=== PATIENT | male | born 1990 | race Hispanic/Latino ===

== ENCOUNTER → 2023-10-26 14:16 | Outpatient (REF) | payer OTHER, SELFPAY ==
[2023-10-26 15:32] LABS: % Basophils 0.6 % (0-2); % Eosinophils 3.6 % (0-6); % Immature Granulocytes 0.4 % (0-0.5); % Lymphocytes 37.1 % (20.5-51.1); % Monocytes 7.5 % (1.7-9.3); % Neutrophils 50.8 % (42.2-75.2); Absolute Basophils 0.1 10^3/uL (0-0.2); Absolute Eosinophils 0.3 10^3/uL (0-0.7); Absolute Monocytes 0.6 10^3/uL (0.1-0.6); Absolute Neutrophils 4.1 10^3/uL (1.4-6.5); Hematocrit 42.7 % (39.0-52.0); Hemoglobin 15.4 g/dL (13.0-18.0); Mean Corp Hgb Conc. 36.1 g/dL (33.0-37.0); Mean Corpuscular Hgb 29.4 pg (27.0-31.0); Mean Corpuscular Volume 81.6 fL (80.0-94.0); Mean Platelet Volume 10.5 fL (7.4-10.4); Nucleated Red Blood Cells % 0 % (-); Platelet Count 256 10^3/uL (130-400); Red Blood Cell Count 5.23 10^6/uL (4.70-6.10); Red Cell Dist. Width 12.7 % (11.5-14.5); White Blood Cell Count 8.1 10^3/uL (4.8-10.8)
[2023-10-26 15:44] LABS: ALT (SGPT) 85 U/L (0-50); AST (SGOT) 97 U/L (17-59); Albumin 4.6 g/dl (3.5-5.0); Alkaline Phosphatase 38 U/L (38-126); Blood Urea Nitrogen 16 mg/dl (9-20); Calcium 9.8 mg/dl (8.4-10.2); Carbon Dioxide 28 mmol/L (22-30); Chloride 102 mmol/L (98-107); Glucose 83 mg/dl (70-99); HDL Cholesterol 47 mg/dl; LDL Cholesterol, Calculated 103 mg/dl; Potassium 4.4 mmol/L (3.5-5.1); Sodium 139 mmol/L (135-145); Total Bilirubin 0.5 mg/dl (0.2-1.3); Total Cholesterol 170 mg/dl (50-199); Total Protein 7.2 g/dl (6.3-8.2); Triglyceride 103 mg/dl (10-149); Very Low Density Lipoprotein 20 mg/dl (0-30); eGFR > 60.00
[2023-10-26 16:08] LABS: Vitamin D, 25-OH*** 28.9 ng/mL (30-80)
[2023-10-26 16:22] LABS: TSH Reflex To Free T4 1.15 uIU/ml (0.47-4.68)
[2023-10-27 10:18] LABS: Glycohemoglobin (HgbA1c) 5.5 % (4.0-5.6)
[2023-10-28 08:54] LABS: H. pylori Breath Test Negative (Negative)
== END ==
LOC: CLINIC 14:16
PROVIDERS: ATTENDING PHYSICIAN Nurse Practitioner Acute Care
DX: Z00.00 Encounter for general adult medical examination without abnormal findings (principal)
CPT/HCPCS: 36415; 80053; 80061; 82306; 83013; 83036; 84443; 85025

== ENCOUNTER → 2023-11-24 15:58 | Outpatient (REF) | payer OTHER, SELFPAY | LOC: CLINIC 15:58 | PROVIDERS: ATTENDING PHYSICIAN Nurse Practitioner Acute Care | DX: R07.89 Other chest pain (principal) | CPT/HCPCS: 93005 ==

== ENCOUNTER → 2023-12-05 14:48 | Outpatient (REF) | payer OTHER, SELFPAY | LOC: RCS 14:48 | PROVIDERS: ATTENDING PHYSICIAN Nurse Practitioner Acute Care | DX: R07.89 Other chest pain (principal) | CPT/HCPCS: 93017 ==

== ENCOUNTER → 2024-01-05 15:42 | Outpatient (REF) | payer OTHER, SELFPAY ==
[2024-01-05 18:36] LABS: Hepatitis B Surface Antigen Negative (Negative)
[2024-01-05 18:51] LABS: Hepatitis C Antibody Negative (Negative)
== END ==
LOC: REG 15:42
PROVIDERS: ATTENDING PHYSICIAN Internal Medicine
DX: R07.89 Other chest pain (principal)
CPT/HCPCS: 36415; 86803; 87340

== ENCOUNTER 2025-02-09 13:05 | Observation (INO) | payer OTHER, SELFPAY ==
[2025-02-09] VITALS (7 sets, daily range): BP systolic 103–120; BP diastolic 55–74; BMI 29.7; BMI 29.2
--- NOTE | 2025-02-09 09:12 | ED.GENMED ---
History of Present Illness
General
Chief Complaint: Abdominal Symptoms
Time Seen by Provider: 02/09/25 09:12
History of Present Illness
History of Present Illness:
FOCUSED PAST MEDICAL HISTORY
- Denies any significant past medical history
REVIEW OF OLD RECORDS
- I reviewed records, the patient was seen in the emergency department in July 2022 related to alcohol use and at that time [facility] evaluated patient and outpatient resources were given
Note:
CHIEF COMPLAINT(S)
Ingestion of floor representative.
HISTORY OF PRESENT ILLNESS
The patient is a 35-year-old male who accidentally ingested a floor representative, identified as OdoBan, 'a neutral pH dumper mold cleaner'. The incident occurred early in the morning when the patient mistakenly drank the dumper mold cleaner, thinking it was water. He consumed
an amount equivalent to a small glass. Upon ingestion, the patient immediately detected an unusual taste and odor, leading to a prompt emetic response, where he vomited a small amount. He then developed abdominal pain and headaches were reported at
the time of the encounter. He had ongoing symptoms. His primary concern was the potential toxicity of the ingestion. Emergency interventions included the initiation of intravenous fluids and administration of antiemetic medication to manage
potential nausea.
SEARCH OF INGREDIENTS
'Surfactants like C8-16 alcohol poly glucoside and C11 alcohols ethyloxylated'
'Preservative blend of methylchloroisothiazolinone and methylisothiazolinone'
MEDICATIONS
No current medications or allergies were disclosed by the patient.
PHYSICAL EXAM
General: The patient appeared uncomfortable upon arrival, continued dry heaving/retching
Skin: Warm, dry.
Head: Normocephalic, atraumatic.
Neck: Supple, trachea midline.
Eye Ears, nose, mouth, and throat: Oral mucosa moist.
Cardiovascular: Normal peripheral perfusion, No edema.
Respiratory: Respirations are non-labored.
Gastrointestinal: Abdomen nondistended. Minimal upper abdominal tenderness
Back: Normal range of motion, Normal alignment.
Musculoskeletal: Normal range of motion, normal strength.
Neurological: Alert and oriented to person, place, time, and situation, No focal neurological deficit observed.
Psychiatric: Cooperative, appropriate mood & affect.
PLAN
- Start intravenous fluids to maintain hydration.
- Administer antiemetic medication for potential nausea.
- Conduct blood work for further evaluation.
DIFFERENTIAL DIAGNOSIS
The Differential Diagnosis includes, in no particular order and is not limited to:
1. Acute chemical ingestion.
2. Gastrointestinal irritation secondary to ingestion.
3. Acute stress reaction.
4. Dehydration.
5. Electrolyte imbalance.
6. Toxicity from household chemicals.
7. Esophageal irritation or injury.
8. Allergic reaction to chemical compounds in the dumper mold cleaner.
9. Aspiration pneumonia.
10. Simple nausea/vomiting due to non-ingestion related causes.
LABS
- CBC and chemistries unremarkable, VBG unremarkable, normal osmolarity
UPDATE
-SUMMARY OF ENCOUNTER
The patient, a 35-year-old male, presented to the emergency department after accidentally ingesting OdoBan, a neutral pH floor representative. He consumed the equivalent of a small glass, mistaking it for water. The patient experienced an immediate emetic
response following ingestion and vomited a small amount. He did not report any significant symptoms, such as abdominal pain or headaches afterward. The main concern was the potential toxicity of the dumper mold cleaner. In the emergency department, the patient
received intravenous fluids to maintain hydration and antiemetic medication to manage potential nausea. Blood work was conducted for further evaluation to monitor any adverse effects or complications from the ingestion.
PLAN
- Continue intravenous fluids to ensure proper hydration.
- Continue antiemetic medications as needed to manage nausea.
- Monitor the patient�s vital signs and symptoms to ensure no complications develop.
- Await and review results from blood work to assess any need for changes in management.
MEDICATION RECONCILIATION
Intravenous fluids and antiemetic medication were administered to the patient during the visit.
MEDICAL DECISION MAKING
-Complexity of Data Reviewed: Differential diagnosis includes acute chemical ingestion, gastrointestinal irritation, acute stress reaction, dehydration, electrolyte imbalance, toxicity from household chemicals, esophageal irritation or injury,
allergic reaction to chemical compounds in the dumper mold cleaner, aspiration pneumonia, and simple nausea/vomiting due to non-ingestion related causes.
-Data:
Category 1
Blood work was ordered and reviewed to monitor potential complications from chemical ingestion.
-Risk:
Consideration of Admission/Observation: Escalation of care including admission/observation was considered given the complexity and risk of the patients presenting complaint. However, ultimately it was determined that the patient is safe for
outpatient management with close follow-up. The reasoning included a reassuring work-up, stable vitals, and effective symptom control upon reevaluation.
DIAGNOSIS
Accidental ingestion of household dumper mold cleaner, ICD-10 T55.9X1A.
Suspected gastrointestinal irritation due to chemical ingestion, ICD-10 K52.9.
I discussed the case with the on-call landmen at [facility]. No further recommendations regarding from a toxicology standpoint however he does recommend GI involvement. The patient does have ongoing retching and spitting up of his
secretions, he did only fair with p.o. challenge, Dr. Prasad evaluated patient in the ER and recommends he stay in the hospital overnight for observation in case this could be more of a caustic alkali ingestion.
Past History
Past History
ED Past Medical History: None
ED Past Surgical History: None
Social History
Tobacco: Non-smoker
Alcohol: Occasional
Personal: Single
Living: with family
Employment: Employed
Family History
Family History: Negative CAD
Phy Exam
Physical Exam
Physical Exam:
See HPI
Course
Orders/Labs/Results
Orders:
Orders
02/09/25 09:23
0.9% Sodium Chloride 1000 ml [Nss] 1,000 ml IV BOLUS
Famotidine [Pepcid] 20 mg IV NOW STA
Ondansetron Injectable [Zofran] 4 mg IV NOW STA
02/09/25 09:32
Alcohol Urgent
Complete Blood Count/With Diff Urgent
Comprehensive Metabolic Panel Urgent
Serum Osmolality Urgent
Venous Blood Gas Urgent
%Oxygen/Room Air: ra
Abnormal Lab Results
02/09/25
09:32
VBG pCO2 50 H mmHg
(35-48)
VBG HCO3 29.6 H mmol/L
(22-27)
Glucose 101 H mg/dl
(70-99)
Alkaline Phosphatase 26 L U/L
(38-126)
02/09/25 09:32
02/09/25 09:32
Vital Signs
Initial and Last Documented VS:
Initial Vital Signs
Temp Pulse Resp BP Pulse Ox
36.6 C 62 16 120/74 99
02/09/25 09:04 02/09/25 09:04 02/09/25 09:04 02/09/25 09:04 02/09/25 09:04
Last Documented Vital Signs
Temp Pulse Resp BP Pulse Ox
36.6 C 62 16 120/74 99
02/09/25 09:04 02/09/25 09:04 02/09/25 09:04 02/09/25 09:04 02/09/25 09:25
*Pulse Oximetry
SaO2: 99
Oxygen Mode of Delivery: Room air
Patient hypoxic: no
*Critical Care Note
Total Time (30-74mins, 75-104mins- exclusive of procedures): Not Applicable
ED Attending Note
-
Portions of this chart may have been created with voice recognition software.� Occasional wrong word or��sound alike� substitutions may have occurred due to the inherent limitations of voice recognition software.
Discharge Plan
Departure
Patient Disposition: Admit
Date of Disposition: 02/09/25
Time of Disposition: 11:46
Presentation/result/management discussed w/ accepting MD/DO: Hospitalist
Discharge Problem:
Accidental ingestion of substance
Prescriptions:
No Action
meloxicam 15 mg tablet
15 mg PO DAILY
Patient Comments:
Pt states that he just started taking this two days ago. Rx was filled 08/15/24.
Referrals:
UNKNOWN - PT DOES,NOT KNOW [Family Provider]
Interventions
Interventions:
*Risk Screen - Suicide Last Done: 02/09/25 09:04
*General Assessment Last Done: 02/09/25 09:47
*Neglect/Abuse Screening Last Done: 02/09/25 09:04
*ED- Fall Risk Assessment Last Done: 02/09/25 09:47
[facility] Assessment Last Done: 02/09/25 09:47
Discharge Date and Time
Print Language: GAMBIAN
[2025-02-09] MEDS: NSS 1000 IV (09:41)
[2025-02-09] MEDS: PEPCID 20 MG IV (09:41)
[2025-02-09] MEDS: ZOFRAN 4 MG IV (09:41)
[2025-02-09 09:45] LABS: Venous Blood Gas B.E. 3.2 mmol/L (-4 to +4); Venous Blood Gas O2 Sat % 76.0 %
[2025-02-09 09:46] LABS: Hematocrit 45.6 % (39.0-52.0); Hemoglobin 15.8 g/dL (13.0-18.0); Mean Corp Hgb Conc. 34.6 g/dL (33.0-37.0); Mean Corpuscular Volume 84.8 fL (80.0-94.0); Nucleated Red Blood Cells % 0 % (-); Platelet Count 247 10^3/uL (130-400); Red Cell Dist. Width 12.5 % (11.5-14.5)
[2025-02-09 09:47] LABS: Venous Blood Gas O2 Therapy ra
[2025-02-09 10:04] LABS: ALT (SGPT) 35 U/L (0-50); AST (SGOT) 24 U/L (17-59); Albumin 4.4 g/dl (3.5-5.0); Alkaline Phosphatase 26 U/L (38-126); Blood Urea Nitrogen 15 mg/dl (9-20); Calcium 9.4 mg/dl (8.4-10.2); Carbon Dioxide 27 mmol/L (22-30); Chloride 104 mmol/L (98-107); Estimated Creatinine Clearance > 125 ml/min; Glucose 101 mg/dl (70-99); Potassium 3.6 mmol/L (3.5-5.1); Sodium 137 mmol/L (135-145); Total Protein 7.5 g/dl (6.3-8.2); eGFR > 60.00
--- NOTE | 2025-02-09 11:47 | CON.GI ---
Consultation
-
Date/Time Consultation Performed: 02/09/25
Performing Provider: Herbert Prasad MD
Reason for Consultation: caustic ingestion
Medical History
Chief Complaint / HPI
Chief Complaint: caustic ingestion
History of Present Illness:
The patient is a 35-year-old male with past medical history as noted with caustic ingestion. He accidentally ingested about a glass full of a smoothie that he accidentally made with a cleaning agent which was stored in a water bottle. He had
immediate emesis. Upon presentation he had some GI discomfort, now feeling much better with only minimal abdominal discomfort. He has no mouth pain and denies any significant dysphagia or odynophagia. He has been having some belching recently
though really no other significant GI issues leading up to this. He has no fevers or chills and denies any chest pain or shortness of breath, denies any wheezing.
Past Medical History
Past Medical History: None
Past Surgical History: None
Social History
Tobacco: Non-Smoker
Alcohol: None
Family History
Family History: Reviewed & Not Pertinent
Allergies / Home Medications
Allergy/AdvReac Type Severity Reaction Status Date / Time
No Known Allergies Allergy Verified 09/27/22 09:37
�Medication �Instructions �Recorded
No Meds [No Current Medications] 09/21/20
Review of Systems
-
All other systems: A 12 pt ROS was Negative except as stated above in HPI
Vital Signs
Temp Pulse Resp BP Pulse Ox
98 F 62 16 120/74 99
02/09/25 09:04 02/09/25 09:04 02/09/25 09:04 02/09/25 09:04 02/09/25 09:25
Physical Exam
Exam
General: NAD
HEENT: MMM, anicteric, no lymphadenopathy, no mouth ulcerations
Heart: Regular, no murmurs
Lungs: CTA bilaterally
Abdomen: normal bowel sounds, soft, no tenderness, no rebound or guarding, no masses, bruits or ascites
Extremeties: no edema
Skin: no rashes
Results
WBC 8.0 10^3/uL (4.8-10.8) 02/09/25 09:32
Hgb 15.8 g/dL (13.0-18.0) 02/09/25:
Hct 45.6 % (39.0-52.0) 02/09/25:
MCV 84.8 fL (80.0-94.0) 02/09/25:
Plt Count 247 10^3/uL (130-400) 02/09/25:
Absolute Neuts (auto) 4.3 10^3/uL (1.4-6.5) 02/09/25:
Sodium 137 mmol/L (135-145) 02/09/25:
Potassium 3.6 mmol/L (3.5-5.1) 02/09/25:
Chloride 104 mmol/L (98-107) 02/09/25:
Carbon Dioxide 27 mmol/L (22-30) 02/09/25:32
BUN 15 mg/dl (9-20) 02/09/25:32
Creatinine 0.7 mg/dL (0.7-1.3) 02/09/25:
Calcium 9.4 mg/dl (8.4-10.2) 02/09/25:
Total Bilirubin 0.9 mg/dl (0.2-1.3) 02/09/25:
AST 24 U/L (17-59) 02/09/25:
ALT 35 U/L (0-50) 02/09/25:32
Alkaline Phosphatase 26 U/L (38-126) L 02/09/25:32
Diagnostic Image Results:
Prior GI Procedures:
EGD:
Colonoscopy:
Assessment / Plan
-
1. Caustic ingestion: Of a household venetian blind cleaner and repairer containing ammonia. It is reassuring that he has no mouth basilio now and only minimal GI symptoms. In the absence of mouth basilio and minimal GI symptoms can hold on urgent endoscopy, with lower risk of
significant esophageal injury. Given that did contain ammonia, however would observe overnight, clear liquid diet and supportive care for now. If continues to do well then can discharge in the morning, if symptoms worsen would plan endoscopy to
help risk stratify esophageal injury.
-
-
Thank you for consultation and allowing me to participate in the patient's care. Please call the internal combustion engine inspector GI physician during the after hours with any questions or concerns.
--- NOTE | 2025-02-09 12:05 | HPS.HSE ---
Family Physician
-
Family Physician: NOT KNOW UNKNOWN - PT DOES
Chief Complaint
-
Shortness of breath
History of Present Illness
35-year-old male with no past medical history presents with chief complaint of shortness of breath. Earlier this morning the patient had an accidental ingestion of OdoBan commercial floor covering installer. He developed abdominal pain and shortness of breath. He
induced vomiting. He came to the ER due to concerns for shortness of breath which have now resolved. The ER attending spoke to toxicology. Nothing to do other that supportive care and monitoring for development of any new symptoms. Patient denies
any other acute symptoms. After receiving Zofran, IV fluids, Pepcid in the ER the patient feels better.
Medical History
Past Medical History
Past Medical History: Reports None
Past Surgical History: Reports Other (N/A)
Social History
Tobacco: Non-smoker
Alcohol: None
Drug: None
Family History
Family History: Not pertinent
Allergies / Home Medications
Allergies reflects when Allergies were last updated in Tweet Category.
Home Medications with original date entered in Tweet Category
Allergy/Medication List:
Allergies
Allergy/AdvReac Type Severity Reaction Status Date / Time
No Known Allergies Allergy Verified 09/27/22 09:37
Home Medications
meloxicam 15 mg tablet 15 mg PO DAILY 02/09/25
Review of Systems
-
History Source: Patient
A 12 point ROS was completed and negative except as noted: Yes
Physical Exam
Vital Signs
Vital Signs
Temp Pulse Resp BP Pulse Ox
98 F 62 16 120/74 99
02/09/25 09:04 02/09/25 09:04 02/09/25 09:04 02/09/25 09:04 02/09/25 09:25
Physical Exam
General: Other (.)
Laboratory Results
-
02/09/25 09:32
02/09/25 09:32
Laboratory Results
Total Bilirubin 0.9 mg/dl (0.2-1.3) 02/09/25 09:32
AST 24 U/L (17-59) 02/09/25 09:32
ALT 35 U/L (0-50) 02/09/25 09:32
Alkaline Phosphatase 26 U/L (38-126) L 02/09/25 09:32
Impression/Plan
-
Gen: NAD, AAOx3.
Eyes: EOMI, PERRLA, no scleral icterus.
Neck: supple.
CV: RRR, +S1/S2, no m/r/g.
Resp: CTAB, no rales, wheezes, or rhonchi.
Abd: +BS, soft, NT, ND
Skin: No rashes.
Neuro: CN 2-12 intact, non-focal.
Psych: Normal mood and affect.
Accidental ingestion of OdoBan commercial floor covering installer:
-ER attg spoke to toxicology. Nothing to do other that supportive care and monitoring for development of any new symptoms.
-Hemodynamically stable, no significant laboratory abnormalities
-IVFs, antiemetics
-check CMP/CBC in AM
FULL/Lovenox
--- NOTE | 2025-02-09 13:03 | EDCM ---
CM reviewed chart and met with pt bedside in ED. pt primarily Malawian speaking, does understand some Greek.
Lives with his in apartment, independent in ADLs, personal care and ambulation. No DME.
Confirms he is not insured. Has been to [facility] in the past.
Does not know which pharmacy he would use.
Anticipate discharge home, no needs. CM will continue to follow.
[2025-02-09] MEDS: D5/0.45%NACL 1000 IV ×2 (15:17→23:26)
--- NOTE | 2025-02-09 15:17 | PTCARENOTE ---
Pt transferred from ED. Ambulated into room. Pt Latvian speaking, knit goods mender at bedside. Pt oriented to unit, call vaughn within reach. Will continue with current plan.
[2025-02-09] MEDS: PEPCID 20 MG PO (20:54)
[2025-02-10] MEDS: D5/0.45%NACL 1000 IV (06:09)
[2025-02-10] MEDS: PEPCID 20 MG PO (07:44)
[2025-02-10 08:35] VITALS: BP 117/66
[2025-02-10 09:16] LABS: Hematocrit 45.4 % (39.0-52.0); Hemoglobin 15.7 g/dL (13.0-18.0); Mean Corp Hgb Conc. 34.6 g/dL (33.0-37.0); Mean Corpuscular Volume 84.4 fL (80.0-94.0); Platelet Count 256 10^3/uL (130-400); Red Cell Dist. Width 12.6 % (11.5-14.5)
[2025-02-10] MEDS: ZOFRAN 4 MG IV (09:52)
[2025-02-10 10:03] VITALS: BP 119/64
--- NOTE | 2025-02-10 10:03 | PTCARENOTE ---
Pt complaining of chest pain with nausea, PRN Zofran given. EKG showing Sinus Chin, VSS. MD made aware. Will continue with current plan
[2025-02-10 10:08] LABS: ALT (SGPT) 30 U/L (0-50); AST (SGOT) 23 U/L (17-59); Albumin 4.2 g/dl (3.5-5.0); Alkaline Phosphatase 21 U/L (38-126); Blood Urea Nitrogen 8 mg/dl (9-20); Calcium 9.3 mg/dl (8.4-10.2); Carbon Dioxide 31 mmol/L (22-30); Chloride 103 mmol/L (98-107); Estimated Creatinine Clearance > 125 ml/min; Glucose 102 mg/dl (70-99); Potassium 3.8 mmol/L (3.5-5.1); Sodium 140 mmol/L (135-145); Total Protein 6.8 g/dl (6.3-8.2); eGFR > 60.00
--- NOTE | 2025-02-10 10:10 | W.PN.HOSP.TC ---
Today's Communication/Plan
-
see plan
Assessment / Plan
Assessment / Plan
Gen: NAD, AAOx3.
Eyes: EOMI, PERRLA, no scleral icterus.
Neck: supple.
CV: casper reg rhythm, +S1/S2, no m/r/g.
Resp: remains CTAB, no rales, wheezes, or rhonchi.
Abd: remains +BS, soft, NT, ND
Skin: No rashes.
Neuro: CN 2-12 intact, non-focal.
Psych: Normal mood and affect.
Accidental ingestion of OdoBan floor grinder:
-ER attg spoke to toxicology. Nothing to do other that supportive care and monitoring for development of any new symptoms.
-Hemodynamically stable, no significant laboratory abnormalities
-cont IVFs, antiemetics
-this AM pt with CP and 'burping a lot.' GI following. In my opinion pt should have EGD.
FULL/Lovenox
Anticipated Discharge: Within 24 hours
Subjective/Interval History
-
Date of Service: February 10, 2025
Pt had CP, nausea, and 'burping a lot: earlier today, now resolved.
Objective Data
-
Labs:
Laboratory Results
02/10/25
07:32
WBC 6.6
Hgb 15.7
Hct 45.4
Plt Count 256
Sodium 140
Potassium 3.8
Chloride 103
Carbon Dioxide 31 H
BUN 8 L
Creatinine 0.7
Glucose 102 H
Calcium 9.3
Total Bilirubin 0.5
AST 23
ALT 30
Alkaline Phosphatase 21 L
Vital Signs:
Vital Signs
Temp Pulse Resp BP Pulse Ox
97.8 F 43 18 119/64 100
02/10/25 08:35 02/10/25 10:03 02/10/25 10:03 02/10/25 10:03 02/10/25 08:35
I&O
02/09/25 02/10/25 02/11/25
06:59 05:59 06:59
Intake Total 480 / 480
Output Total 600 / 600
Balance -120 / -120
--- NOTE | 2025-02-10 11:19 | W.PN.GI.CBS2 ---
Today's Communication / Plan
-
Please see assessment and plan for details
Assessment / Plan
-
1. Caustic ingestion: Of a household mold sheet cleaner containing ammonia, though was also supposed to be neutral pH. He had no mouth basilio, no pain yesterday. Today he still denies any abdominal pain, not even a small amount to me. At this point he is
okay to DC from a GI standpoint, would finish PPI for 1 week.
Subjective
Subjective
Date of Service: February 10, 2025
Patient states he is feeling well, denies any abdominal pain, not even a small amount to me. He tolerated clear without any difficulty, again denying any pain with swallowing. He said no fevers or chills overnight, denies any shortness of breath.
Objective
Data Reviewed
Laboratory Data:
Laboratory Results
02/10/25 07:32
02/10/25 07:32
Laboratory Results
Total Bilirubin 0.5 mg/dl (0.2-1.3) 02/10/25 07:32
AST 23 U/L (17-59) 02/10/25 07:32
ALT 30 U/L (0-50) 02/10/25 07:32
Alkaline Phosphatase 21 U/L (38-126) L 02/10/25 07:32
Vital Signs and I&O:
Vital Signs
Temp Pulse Resp BP Pulse Ox
97.8 F 43 18 119/64 100
02/10/25 08:35 02/10/25 10:03 02/10/25 10:03 02/10/25 10:03 02/10/25 08:35
I&O
02/09/25 02/10/25 02/11/25
06:59 05:59 06:59
Intake Total 480 / 480
Output Total 600 / 600
Balance -120 / -120
Physical Exam
Physical Exam
General: NAD
Abdomen: normal bowel sounds, soft, no tenderness, no masses or bruits, no ascites
--- NOTE | 2025-02-10 11:29 | W.PN.UPDATE ---
Update Note
Progress Note Update
Case discussed at length with Dr. Prasad. As per his discussion with the pt today he is completely asymptomatic. Dr. Prasad does not feel the pt requires EGD And feels that he is medically stable for d/c.
Total time spent on d/c = 35 min. This included today's physical exam, progress note, review of laboratory and diagnostic data, preparation of discharge documents and prescriptions, and discussions about the pt's hospital course and discharge plan
with the patient and other medical center director involved in the patient's care.
--- NOTE | 2025-02-10 11:32 | W.DCSUMMARY ---
Discharge Summary
Discharge Data
Date of Admission: 02/09/25
Date of Discharge: 02/10/25
-
Pending Results: No
Hospital Course
Primary diagnoses:
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
Secondary diagnoses:
None
Consultants:
Gastroenterology
Imaging:
None
Hospital course 35-year-old male who was admitted yesterday after presenting with chief complaints of shortness of breath and abdominal pain as on H&P done on admission. The ER attending discussed the case with toxicology. No intervention other
than supportive care was recommended. The patient was seen in consultation by GI and Dr. Prasad cleared the patient for discharge on February 10, 2025. Unexpected rapid recovery.
Discharge Plan
-
Patient Disposition: Home (Routine Discharge)
Discharge Diagnosis/Procedures: Accidental ingestion of cleaning solution
Condition: Good
Diet: Regular
Activity: As tolerated
Driving Restrictions: As prior to admission
Referrals:
UNKNOWN - PT DOES,NOT KNOW [Family Provider] - in less than 1 week
Prescriptions:
Discontinued
meloxicam 15 mg tablet
15 mg PO DAILY
Patient Comments:
Pt states that he just started taking this two days ago. Rx was filled 08/15/24.
Discharge Orders:
Discharge Patient (As Directed); Ordered 02/10/25
Ordered By: Juan Ramon Aviles
Discharge Date and Time
Print Language: BULGARIAN
--- NOTE | 2025-02-10 12:24 | CM ---
Plan home today no needs.
Plan; Home, patient to follow up with [facility].
[2025-02-10 14:15] VITALS: BP 100/55
== END 2025-02-10 15:14 | disposition home or self-care (01) ==
LOC: 4 WEST ACU 13:05
PROVIDERS: ADMITTING PHYSICIAN Internal Medicine; EMERGENCY PHYSICIAN Emergency Medicine; OTHER PHYSICIAN Internal Medicine Gastroenterology
DX: T54.3X1A Toxic effect of corrosive alkalis and alkali-like substances, accidental (unintentional), initial encounter (principal); R11.10 Vomiting, unspecified; R10.9 Unspecified abdominal pain; R51.9 Headache, unspecified; Y92.009 Unspecified place in unspecified non-institutional (private) residence as the place of occurrence of the external cause; R06.02 Shortness of breath; R00.1 Bradycardia, unspecified; R07.9 Chest pain, unspecified; Z79.1 Long term (current) use of non-steroidal anti-inflammatories (NSAID)
CPT/HCPCS: 80053; 82077; 82805; 83930; 85025; 85027; 93005; 96361; 96374; 96375; 99284; G0378